=== PATIENT | male | born 1975 | race Caucasian/White ===

== ENCOUNTER 2017-12-16 15:59 | Emergency (ER) | payer OTHER ==
[2017-12-16 16:41] VITALS: BP 152/97; PULSE 100; RESP 16; TEMP 98.5
--- NOTE | 2017-12-16 16:55 | ED ---
ENT HPI - General Chief complaint: Dental/Oral Stated complaint: Abcess tooth Time Seen by Provider: 12/16/17 16:42 Source: patient, RN notes reviewed Mode of arrival: ambulatory Limitations: no limitations - History of Present Illness Initial comments: This is a 42-year-old male who presents to the emergency department with chief complaint of abscess. Patient states that he has had two fractured teeth for "quite a while now." Patient states that he noticed some left-sided facial swelling last evening. He states he made an appointment with the dentist for extraction of the 2 teeth this coming Saturday. He presents requesting antibiotics. Patient states that he has taken penicillin in the past but that it is made his symptoms worse. He requests another antibiotic. Denies any pain. Denies any active drainage. Denies fevers or chills, chest pain or shortness breath, dumping him nausea or vomiting, dizziness or headache. - Related Data Previous Rx's Medication Instructions Recorded Clindamycin [Cleocin] 450 mg PO TID #90 cap 12/16/17 Allergies Allergy/AdvReac Type Severity Reaction Status Date / Time No Known Allergies Allergy Verified 12/16/17 16:42 Review of Systems ROS Statement: Those systems with pertinent positive or pertinent negative responses have been documented in the HPI. ROS Other: All systems not noted in ROS Statement are negative. Past Medical History Past Medical History: No Reported History History of Any Multi-Drug Resistant Organisms: None Reported Additional Past Surgical History / Comment(s): finger amputation Past Psychological History: No Psychological Hx Reported Smoking Status: Never smoker Past Alcohol Use History: None Reported Past Drug Use History: None Reported General Exam - General Exam Comments Initial Comments: General: Awake and alert, well-developed; in no apparent distress. HEENT: Head atraumatic, normocephalic. Mild left-sided facial swelling. No tenderness on palpation of cheek or jaw. Pupils are equal, round and reactive to light. Extraocular movements intact. Oropharynx moist without erythema or exudate. Poor dentition throughout with missing crowns to teeth #10 and 11. There is an area of fluctuance at gumline superior to tooth #11. No active drainage. Neck: Supple. Normal ROM. Cardiovascular: Regular rate and rhythm. No murmurs, rubs or gallops. Chest symmetrical. Respiratory: Lungs clear to auscultation bilaterally. No wheezes, rales or rhonchi. Normal respiratory effort with no use of accessory muscles. Musculoskeletal: Normal ROM, no tenderness bilateral upper and lower extremities. Ambulating normally. Skin: [place], warm and dry without rashes or lesions. Neurological: Alert and oriented x3. CN II-XII grossly intact. Speech is fluent and answers are appropriate. No focal neuro deficits. Psychiatric: Normal mood and affect. No overt signs of depression or anxiety noted. Limitations: no limitations Course Vital Signs 12/16/17 16:36 Temperature 98.5 F Pulse Rate 100 Respiratory 16 Rate Blood Pressure 152/97 O2 Sat by Pulse 97 Oximetry Procedures - Incision & Drainage Consent Obtained: verbal consent Indication: abscess Site: oral (gumline superior to tooth #11) Size (cm): 1 Needle Aspiration Performed?: Yes I&D Drainage Obtained: Pus, Blood Patient Tolerated Procedure: well, no complications Medical Decision Making - Medical Decision Making This is a 42-year-old male who presents to the emergency department with chief complaint of tooth abscess. Patient requests to have a prescription for another antibiotic other than penicillin. He has a follow-up appointment with a dentist scheduled for Saturday. On physical examination, there is an area of fluctuance of the gum line superior to tooth #11. Teeth #10 and 11 are missing crowns in our black in appearance. I&D was performed with needle aspiration. Pus and blood extracted. Patient tolerated well without complication. He will be given a prescription for clindamycin. Vital signs are stable and he is in no acute distress. He'll be discharged home at this time. Patient is in agreement and voices understanding. All questions were answered. Disposition Clinical Impression: Dental abscess Disposition: HOME SELF-CARE Condition: Good Instructions: Dental Abscess (ED) Additional Instructions: Please take medications as prescribed. Please follow up with dentist as scheduled. Please follow up with primary care provider within 1-2 days. Return to emergency department if symptoms should worsen or any concerns arise. Prescriptions: Clindamycin [Cleocin] 450 mg PO TID #90 cap Is patient prescribed a controlled substance at d/c from ED?: No Referrals: None,Stated [Primary Care Provider] - 1-2 days Time of Disposition: 16:55
== END 2017-12-16 17:19 | disposition home or self-care (01) ==
LOC: EC 15:59
DX: K04.7 Periapical abscess without sinus (principal); S02.5XXA Fracture of tooth (traumatic), initial encounter for closed fracture; X58.XXXA Exposure to other specified factors, initial encounter
CPT/HCPCS: 10160; 99282